=== PATIENT | female | born 1980 | race Caucasian/White ===

== ENCOUNTER → 2017-12-17 | Outpatient (CLI) | payer OTHER | END | disposition home or self-care (01) | LOC: LABWHC1 10:09 | PROVIDERS: ATTEND Obstetrics & Gynecology | DX: N92.6 Irregular menstruation, unspecified (principal) | CPT/HCPCS: 36415; 84702 ==

== ENCOUNTER 2018-10-14 10:23 | Emergency (ER) | payer OTHER ==
[2018-10-14 10:30] VITALS: TEMP 97.8
[2018-10-14] MEDS ORDERED: SODIUM CHLORIDE 0.9% 1,000 ML IV STA (10:54)
[2018-10-14] MEDS ORDERED: KETOROLAC 30 MG/ML 1 ML VIAL IVP STA (11:18)
--- NOTE | 2018-10-14 11:19 | ED ---
Abdominal Pain HPI - General Chief Complaint: Abdominal Pain Stated Complaint: Abd Pain Time Seen by Provider: 10/14/18 10:53 Source: patient, RN notes reviewed Mode of arrival: ambulatory Limitations: no limitations - History of Present Illness Initial Comments: 38-year-old female presents emergency Department with chief complaint of right- sided abdominal pain. Patient states this started Wednesday night has progressively worsened. Patient admits to subjective fevers and chills. She does have some mild diarrhea. Patient states that the pain is worsened and more worrisome. Patient had a prior cholecystectomy. Patient had some nausea no vomiting no melena hematochezia. Patient states that nothing makes the pain better at this time. Denies any chest pain or shortness breath. - Related Data Home Medications Medication Instructions Recorded Confirmed Cholestyramine (with Sugar) 4 gm PO DAILY 10/14/18 10/14/18 [Cholestyramine Packet] Omeprazole 40 mg PO DAILY 10/14/18 10/14/18 Sucralfate [Carafate] 1 gm PO BID 10/14/18 10/14/18 Previous Rx's Medication Instructions Recorded Ciprofloxacin HCl [Cipro] 500 mg PO Q12HR #20 tablet 10/14/18 metroNIDAZOLE [Flagyl] 500 mg PO TID #30 tab 10/14/18 Allergies Allergy/AdvReac Type Severity Reaction Status Date / Time No Known Allergies Allergy Verified 10/14/18 11:01 Review of Systems ROS Statement: Those systems with pertinent positive or pertinent negative responses have been documented in the HPI. ROS Other: All systems not noted in ROS Statement are negative. Past Medical History Past Medical History: No Reported History Additional Past Medical History / Comment(s): varivose vein, gallstones, History of Any Multi-Drug Resistant Organisms: None Reported Past Surgical History: Section Past Anesthesia/Blood Transfusion Reactions: Previous Problems w/ Anesthesia, Motion Sickness Additional Past Anesthesia/Blood Transfusion Reaction / Comment(s): spinal "first one did not take, second only partially took" Past Psychological History: No Psychological Hx Reported Smoking Status: Current every day smoker Past Alcohol Use History: Occasional Past Drug Use History: None Reported - Past Family History Mother Family Medical History: No Reported History General Exam Limitations: no limitations General appearance: alert, in no apparent distress Head exam: Present: atraumatic, normocephalic, normal inspection Neck exam: Present: normal inspection. Absent: tenderness, meningismus, lymphadenopathy Respiratory exam: Present: normal lung sounds bilaterally. Absent: respiratory distress, wheezes, rales, rhonchi, stridor Cardiovascular Exam: Present: regular rate, normal rhythm, normal heart sounds. Absent: systolic murmur, diastolic murmur, rubs, gallop, clicks GI/Abdominal exam: Present: soft, tenderness (Moderate right-sided mid to upper), normal bowel sounds. Absent: distended, guarding, rebound, rigid Back exam: Absent: CVA tenderness (R), CVA tenderness (L) Neurological exam: Present: alert, oriented X3, CN II-XII intact Skin exam: Present: warm, dry, intact, normal color. Absent: rash Course Vital Signs 10/14/18 10:27 Temperature 97.8 F Pulse Rate 89 Respiratory 20 Rate Blood Pressure 133/85 O2 Sat by Pulse 99 Oximetry Medical Decision Making - Medical Decision Making 30-year-old female presented for right-sided abdominal pain. Patient had significant tenderness on exam. Patient lab shows leukocytosis CT shows evidence of diverticulitis without perforation or abscess. Patient will be discharged on oral antibiotics. Patient agrees to plan will follow-up with her surgeon. She is due for colonoscopy at the end of this month. Return parameters were discussed. - Lab Data Result diagrams: 10/14/18 11:15 10/14/18 11:15 Lab Results 10/14/18 10/14/18 10/14/18 Range/Units 11:15 11:15 11:15 WBC 13.8 H (3.8-10.6) k/uL RBC 4.22 (3.80-5.40) m/uL Hgb 13.3 (11.4-16.0) gm/dL Hct 37.8 (34.0-46.0) % MCV 89.7 (80.0-100.0) fL MCH 31.4 (25.0-35.0) pg MCHC 35.0 (31.0-37.0) g/dL RDW 13.7 (11.5-15.5) % Plt Count 317 (150-450) k/uL Neutrophils % 85 % Lymphocytes % 8 % Monocytes % 5 % Eosinophils % 2 % Basophils % 0 % Neutrophils # 11.7 H (1.3-7.7) k/uL Lymphocytes # 1.1 (1.0-4.8) k/uL Monocytes # 0.6 (0-1.0) k/uL Eosinophils # 0.2 (0-0.7) k/uL Basophils # 0.0 (0-0.2) k/uL Sodium 136 L (137-145) mmol/L Potassium 4.0 (3.5-5.1) mmol/L Chloride 105 (98-107) mmol/L Carbon Dioxide 23 (22-30) mmol/L Anion Gap 8 mmol/L BUN 10 (7-17) mg/dL Creatinine 0.80 (0.52-1.04) mg/dL Est GFR (CKD-EPI)AfAm >90 (>60 ml/min/1.73 sqM) Est GFR (CKD-EPI)NonAf >90 (>60 ml/min/1.73 sqM) Glucose 92 (74-99) mg/dL Calcium 9.1 (8.4-10.2) mg/dL Total Bilirubin 2.1 H (0.2-1.3) mg/dL AST 22 (14-36) U/L ALT 31 (9-52) U/L Alkaline Phosphatase 86 (38-126) U/L Total Protein 6.6 (6.3-8.2) g/dL Albumin 3.8 (3.5-5.0) g/dL Lipase 59 (23-300) U/L Urine Color Urine Appearance (Clear) Urine pH (5.0-8.0) Ur Specific [place] (1.001-1.035) Urine Protein (Negative) Urine Glucose (UA) (Negative) Urine Ketones (Negative) Urine Blood (Negative) Urine Nitrite (Negative) Urine Bilirubin (Negative) Urine Urobilinogen (<2.0) mg/dL Ur Leukocyte Esterase (Negative) Urine HCG, Qual Not Detected (Not Detectd) 10/14/18 Range/Units 11:15 WBC (3.8-10.6) k/uL RBC (3.80-5.40) m/uL Hgb (11.4-16.0) gm/dL Hct (34.0-46.0) % MCV (80.0-100.0) fL MCH (25.0-35.0) pg MCHC (31.0-37.0) g/dL RDW (11.5-15.5) % Plt Count (150-450) k/uL Neutrophils % % Lymphocytes % % Monocytes % % Eosinophils % % Basophils % % Neutrophils # (1.3-7.7) k/uL Lymphocytes # (1.0-4.8) k/uL Monocytes # (0-1.0) k/uL Eosinophils # (0-0.7) k/uL Basophils # (0-0.2) k/uL Sodium (137-145) mmol/L Potassium (3.5-5.1) mmol/L Chloride (98-107) mmol/L Carbon Dioxide (22-30) mmol/L Anion Gap mmol/L BUN (7-17) mg/dL Creatinine (0.52-1.04) mg/dL Est GFR (CKD-EPI)AfAm (>60 ml/min/1.73 sqM) Est GFR (CKD-EPI)NonAf (>60 ml/min/1.73 sqM) Glucose (74-99) mg/dL Calcium (8.4-10.2) mg/dL Total Bilirubin (0.2-1.3) mg/dL AST (14-36) U/L ALT (9-52) U/L Alkaline Phosphatase (38-126) U/L Total Protein (6.3-8.2) g/dL Albumin (3.5-5.0) g/dL Lipase (23-300) U/L Urine Color Yellow Urine Appearance Clear (Clear) Urine pH 7.0 (5.0-8.0) Ur Specific [place] 1.017 (1.001-1.035) Urine Protein Negative (Negative) Urine Glucose (UA) Negative (Negative) Urine Ketones Negative (Negative) Urine Blood Negative (Negative) Urine Nitrite Negative (Negative) Urine Bilirubin Negative (Negative) Urine Urobilinogen <2.0 (<2.0) mg/dL Ur Leukocyte Esterase Negative (Negative) Urine HCG, Qual (Not Detectd) Disposition Clinical Impression: Diverticulitis Disposition: HOME SELF-CARE Condition: Stable Instructions (If sedation given, give patient instructions): Diverticulitis (ED) Additional Instructions: Please return to the Emergency Department if symptoms worsen or any other concerns. Prescriptions: Ciprofloxacin HCl [Cipro] 500 mg PO Q12HR #20 tablet metroNIDAZOLE [Flagyl] 500 mg PO TID #30 tab Is patient prescribed a controlled substance at d/c from ED?: No Referrals: Steve Vazquez MD [Primary Care Provider] - 1-2 days Time of Disposition: 12:23
[2018-10-14 11:26] LABS: Appearance,Urine Clear (Clear); Basophils % (A) 0 %; Bilirubin,Urine Negative (Negative); Blood,Urine Negative (Negative); Color,Urine Yellow; Eosinophils # (A) 0.2 k/uL (0-0.7); Eosinophils % (A) 2 %; Glucose,Urine (UA) Negative (Negative); HCT 37.8 % (34.0-46.0); HGB 13.3 gm/dL (11.4-16.0); Ketones,Urine Negative (Negative); Leukocyte Esterase,Urine Negative (Negative); Lymphocytes # (A) 1.1 k/uL (1.0-4.8); Lymphocytes % (A) 8 %; MCH 31.4 pg (25.0-35.0); MCV 89.7 fL (80.0-100.0); Mean Platelet Volume 9.2; Monocytes # (A) 0.6 k/uL (0-1.0); Monocytes % (A) 5 %; Neutrophils # (A) 11.7 k/uL (1.3-7.7); Neutrophils % (A) 85 %; Nitrite,Urine Negative (Negative); Platelet Count 317 k/uL (150-450); Protein,Urine Negative (Negative); RBC 4.22 m/uL (3.80-5.40); RDW 13.7 % (11.5-15.5); Specific Gravity,Urine 1.017 (1.001-1.035); Urobilinogen,Urine <2.0 mg/dL (<2.0); WBC 13.8 k/uL (3.8-10.6)
[2018-10-14 11:37] LABS: ALT 31 U/L (9-52); AST 22 U/L (14-36); Albumin 3.8 g/dL (3.5-5.0); Alkaline Phosphatase 86 U/L (38-126); Anion Gap 8 mmol/L; Blood Urea Nitrogen 10 mg/dL (7-17); Calcium 9.1 mg/dL (8.4-10.2); Carbon Dioxide 23 mmol/L (22-30); Chloride 105 mmol/L (98-107); Glucose 92 mg/dL (74-99); Lipase 59 U/L (23-300); Sodium 136 mmol/L (137-145); Total Bilirubin 2.1 mg/dL (0.2-1.3); Total Protein 6.6 g/dL (6.3-8.2)
--- NOTE | 2018-10-14 12:07 | CT ---
EXAMINATION TYPE: CT abdomen pelvis w con DATE OF EXAM: 10/14/2018 COMPARISON: 12/12/2015 INDICATION: Right sided pain DLP: 657.1 mGycm, Automated exposure control for dose reduction was used. CONTRAST: 100 mL of Isovue 300. Study performed without Oral Contrast TECHNIQUE: Axial images were obtained from above the diaphragm to the pubic rami in the axial plane a t 5 mm thick sections. Reconstructed images are reviewed on the computer in the coronal plane. FINDINGS: Limited CT sections are obtained the lung bases. The lung bases are clear. CT ABDOMEN: Liver: Normal Spleen: Normal Pancreas: Normal Adrenal glands: The adrenal glands are normal. Gallbladder: Surgically absent Kidneys: No masses are evident. No hydronephrosis is present. No cysts are present. Delayed images were obtained through the kidneys. Small cortical renal cysts present on the left. Aorta: Vascular calcification is within the aorta. Inferior vena cava: Normal. CT PELVIS: Small amount of free fluid is within the pelvis. There is bowel wall thickening and inflammatory changes adjacent to the proximal ascending colon. Inf lammatory changes are present. No free air is identified. Findings appear compatible with acute dive rticulitis. Remainder of the colon appears normal. Small bowel loops are unremarkable. Study is perfo rmed without oral contrast. There are scattered diverticuli present within the sigmoid colon without acute diverticulitis. Appendix: Normal as visualized. Appendix is nondilated and air-filled. Urinary bladder: Normal. Genitourinary structures: Uterus is unremarkable. No suspicious ovarian abnormality. Small amount of fluid may be within the right adnexa.. Osseous structures: No suspicious lytic or sclerotic lesions. IMPRESSIONS: 1. Inflammatory changes adjacent to diverticulum with some mild diffuse thickening of the proximal a scending colon wall compatible with acute diverticulitis. Follow-up is recommended. 2. Normal appendix. 3. Small amount of free fluid within the pelvis and right adnexa.
[2018-10-14] MEDS ORDERED: ACET/COD 300 MG/30 MG STARTER PACK 6 TAB BTL PO STA (12:23)
[2018-10-14 12:51] VITALS: BP 108/64; PULSE 73; RESP 18
== END 2018-10-14 12:51 | disposition home or self-care (01) ==
LOC: EC 10:23
DX: K57.92 Diverticulitis of intestine, part unspecified, without perforation or abscess without bleeding (principal); F17.200 Nicotine dependence, unspecified, uncomplicated; Z79.899 Other long term (current) drug therapy
CPT/HCPCS: 36415; 80053; 83690; 85025; 81003; 81025; 74177; 99284; 96374; 96361; J1885; Q9967

== ENCOUNTER → 2019-06-12 | Outpatient (CLI) | payer OTHER ==
--- NOTE | 2019-06-12 14:36 | CT ---
EXAMINATION TYPE: CT abdomen pelvis wo/w con DATE OF EXAM: 06/12/2019 HISTORY: RUQ pain CT DLP: 806.2mGycm Automated Exposure Control for Dose Reduction was Utilized. CONTRAST: CT scan of the abdomen and pelvis is performed with IV Contrast, patient injected with 80 mL of Isovu e 300. COMPARISON: CT dated 10/14/2018 FINDINGS: LUNG BASES: No significant abnormality is appreciated. LIVER/GB: Hepatic parenchyma is diffusely hypoattenuated in comparison to that of the spleen, most co mmonly seen in hepatic steatosis. This finding limits evaluation for hepatic masses. No gross evidenc e of hepatic mass is seen. No intrahepatic biliary ductal dilatation. Gallbladder is surgically absen t. PANCREAS: No significant abnormality is seen. SPLEEN: No significant abnormality is seen. ADRENALS: No significant abnormality is seen. KIDNEYS: Unenhanced images demonstrate no evidence of nephrolithiasis. Enhanced images demonstrate 2 small to accurately characterize cortical lesions on the left. No hydronephrosis is seen. BOWEL: There are few colonic diverticula without pericolonic fat stranding UTERUS/ADNEXA: Ocular and/or cystic changes are seen of the ovaries. Endometrium appears within moreno l limits for a premenopausal female. LYMPH NODES: No greater than 1cm abdominal or pelvic lymph nodes are appreciated. OSSEOUS STRUCTURES: No significant abnormality is seen. IMPRESSION: 1. Mild degree hepatic steatosis. 2. Follicular and/or cystic changes of the ovaries. If there is further concern or pelvic pain pelvic ultrasound could be performed.
== END | disposition home or self-care (01) ==
LOC: RADCTMAIN 11:38
PROVIDERS: ATTEND Internal Medicine
DX: K76.0 Fatty (change of) liver, not elsewhere classified (principal)
CPT/HCPCS: 74178; Q9967

== ENCOUNTER 2019-07-19 08:40 | Day surgery (SDC) | payer OTHER ==
[2019-07-14 10:37] VITALS: BMI 24.7
[~2019-07-19 08:40] MED LIST: LACTATED RINGERS 1,000 ML IV SCH; LIDOCAINE 1% 20 ML VIAL (10MG/ML) FOR IV START INTRADERMA PRN
[2019-07-19 09:12] VITALS: TEMP 97.3
[2019-07-19] MEDS ORDERED: PROPOFOL 10 MG/ML 20 ML VIAL IV ONE (09:52)
[2019-07-19] MEDS ORDERED: LIDOCAINE 1% INJ 10MG/ML (20 ML MDV) ONE (09:52)
--- NOTE | 2019-07-19 10:08 | P.PCN ---
Date of Procedure: 07/19/19 Procedure(s) Performed: BRIEF HISTORY: Patient is a 38-year-old pleasant female scheduled for an elective colonoscopy as a part of evaluation of prior history of colon polyps. Last colonoscopy was 5 years ago. PROCEDURE PERFORMED: Colonoscopy. PREOPERATIVE DIAGNOSIS: History of colon polyps. IV sedation per Anesthesia. PROCEDURE: After informed consent was obtained, the patient, was brought into the endoscopy unit. IV sedation was administered by Anesthesia under continuous monitoring. Digital rectal examination was normal. Initially the Olympus CF-160 flexible video colonoscope was then inserted in the rectum, gradually advanced into the cecum without any difficulty. Careful examination was performed as the scope was gradually being withdrawn. Ileocecal valve and the appendiceal orifice were visualized and appeared normal. Prep was excellent. Mucosa of the cecum, ascending colon, transverse colon, descending colon, sigmoid colon, and rectum appeared normal. Scattered sigmoid diverticulosis. Retroflexion was performed in the rectum and no lesions were seen. The patient tolerated the procedure well. IMPRESSION: Normal-appearing colon from rectum to cecum with no evidence of colorectal neoplasia . Scattered sigmoid diverticulosis RECOMMENDATIONS: Findings of this examination were discussed with the patient as well as a family. She was advised to have a repeat surveillance colonoscopy in 5 years from now because of the prior history of colon polyps.
[2019-07-19 10:27] VITALS: BP 119/75; RESP 16
[2019-07-19 10:39] VITALS: PULSE 62
== END 2019-07-19 11:00 | disposition home or self-care (01) ==
LOC: ORWHC2ENDO 08:40
PROVIDERS: ATTEND Internal Medicine Gastroenterology
DX: K57.30 Diverticulosis of large intestine without perforation or abscess without bleeding (principal); Z86.010 Personal history of colon polyps; R19.7 Diarrhea, unspecified; K21.9 Gastro-esophageal reflux disease without esophagitis; L30.9 Dermatitis, unspecified; F17.210 Nicotine dependence, cigarettes, uncomplicated; Z91.012 Allergy to eggs; Z91.011 Allergy to milk products; Z79.899 Other long term (current) drug therapy; Z98.890 Other specified postprocedural states; Z87.898 Personal history of other specified conditions
CPT/HCPCS: 81025; 45378; J2001; J2704

== ENCOUNTER 2023-07-26 11:45 | Observation (INO) | payer BC ==
[2023-07-26] MEDS ORDERED: SODIUM CHLORIDE 0.9% 1,000 ML IV STA (12:12)
[2023-07-26] MEDS ORDERED: KETOROLAC 15 MG/ML 1 ML VIAL IVP STA (12:12)
[2023-07-26] MEDS ORDERED: MORPHINE SULFATE 2 MG/ML SYRINGE IVP STA (12:13)
--- NOTE | 2023-07-26 12:18 | ED ---
Abdominal Pain HPI - General Chief Complaint: Abdominal Pain Stated Complaint: RLQ and back pain Time Seen by Provider: 07/26/23 12:04 Source: patient, RN notes reviewed Mode of arrival: ambulatory Limitations: no limitations - History of Present Illness Initial Comments: This is a 42 year old female who presents to the emergency department for abdominal pain. States that yesterday she developed pain in the RLQ with radiation into the back. Also has some pain in the left lower quadrant, but not to the severity of the right side. She had a fever of 103F last night. She took ibuprofen for the fever, however it did not help the pain. Also reports diarrhea. She denies any nausea or vomiting. She has a history of diverticulitis a few years ago, and is unsure if it is related to that or something else such as her appendix. MD Complaint: abdominal pain - Related Data Home Medications Medication Instructions Recorded Confirmed Omeprazole 20 mg PO DAILY PRN 07/26/23 07/26/23 Allergies Allergy/AdvReac Type Severity Reaction Status Date / Time egg Allergy Bloating Verified 07/26/23 13:51 Milk Containing Products Allergy Bloating Verified 07/26/23 13:51 (Dairy) [Dairy] Review of Systems ROS Statement: Those systems with pertinent positive or pertinent negative responses have been documented in the HPI. ROS Other: All systems not noted in ROS Statement are negative. Past Medical History Past Medical History: GERD/Reflux, Skin Disorder Additional Past Medical History / Comment(s): Varicose vein, IBS, chronic diarrhea, Dermatitis. History of Any Multi-Drug Resistant Organisms: None Reported Past Surgical History: Section, Cholecystectomy Additional Past Surgical History / Comment(s): Section X3. COLONOSCOPY Past Anesthesia/Blood Transfusion Reactions: Previous Problems w/ Anesthesia, Motion Sickness Additional Past Anesthesia/Blood Transfusion Reaction / Comment(s): Spinal "first one did not take, second only partially took." Past Psychological History: No Psychological Hx Reported Smoking Status: Current every day smoker Past Alcohol Use History: Occasional Past Drug Use History: None Reported - Past Family History Mother Family Medical History: No Reported History General Exam Limitations: no limitations General appearance: alert, in no apparent distress Head exam: Present: atraumatic, normocephalic, normal inspection Respiratory exam: Present: normal lung sounds bilaterally. Absent: respiratory distress, wheezes, rales, rhonchi, stridor Cardiovascular Exam: Present: regular rate, normal rhythm, normal heart sounds. Absent: systolic murmur, diastolic murmur, rubs, gallop, clicks GI/Abdominal exam: Present: soft, tenderness (RLQ), normal bowel sounds. Absent: distended Neurological exam: Present: alert, oriented X3, CN II-XII intact Psychiatric exam: Present: normal affect, normal mood Skin exam: Present: warm, dry, intact, normal color. Absent: rash Course Vital Signs 07/26/23 07/26/23 07/26/23 11:48 13:52 15:33 Temperature 98.4 F 97.8 F Pulse Rate 104 H 72 86 Respiratory 20 18 18 Rate Blood Pressure 121/74 111/70 107/71 O2 Sat by Pulse 99 97 Oximetry Medical Decision Making - Medical Decision Making This is a 42-year-old female who presents to the emergency department for abdominal pain. Was pt. sent in by a medical professional or institution? @ -No Did you speak to anyone other than the patient for history? @ -No Did you review nursing and triage notes? @ -Yes, and I agree, it is accurate with regards to the patient's symptoms. Were old charts reviewed? @ -No Differential Diagnosis? @ -Differential Abdominal Pain Women: Appendicitis, Cholecystitis, diverticulosis, ischemic bowel, pancreatitis, hepatitis, UTI, gastroenteritis, AAA, incarcerated hernia, bowel obstruction, constipation, inflammatory bowel, hepatitis, peptic ulcer disease, splenic infarction, perforated viscus, vulvitis, ovarian torsion, PID, kidney stone, placenta abruption, this is not meant to be an all-inclusive list EKG interpreted by me (3pts min.)? @ -Not obtained X-rays interpreted by me (1pt min.)? @ -Not obtained CT interpreted by me (1pt min.)? @ -CT scan of the abdomen and pelvis obtained. My interpretation identifies no dilation of the appendix or free air. U/S interpreted by me (1pt. min.)? @ -Not obtained What testing was considered but not performed? (CT, X-rays, U/S, labs)? Why? @ -None What meds were considered but not given? Why? @ -None Did you discuss the management of the patient with other professionals? @ -Yes, Dr. Clark, who accepts the patient for admission. Did you reconcile home meds? @ -No Was smoking cessation discussed for >3mins.? @ -I discussed smoking cessation for greater than 3 minutes. The risk of smoking were discussed with the patient including but not limited to risks of cancer, stroke, coronary artery disease and COPD. Also discussed with patient were multiple methods of quitting smoking. Lastly we discussed the financial cost of smoking. Was critical care preformed (if so, how long)? @ -No Were there social determinants of health that impacted care today? How? (Homelessness, low income, unemployed, alcoholism, drug addiction, transportation, low edu. Level, literacy, decrease access to med. care, custodial, rehab)? @ -No Was there de-escalation of care discussed even if they declined? (Discuss DNR or withdrawal of care, Hospice)? @ -No What co-morbidities impacted this encounter? (DM, HTN, Smoking, COPD, CAD, Cancer, CVA, Hep., AIDS, mental health diagnosis, sleep apnea, morbid obesity)? @ -None Was patient admitted / discharged? @ -Admitted. Lab work obtained revealing leukocytosis and was otherwise unre markable. Computed tomography scan of the abdomen and pelvis reveals severe inflammatory changes to the right upper quadrant thought to be related to diverticulitis. The appendix was visualized as normal. Patient continued to exhibit intractable pain despite multiple doses of IV analgesics. Given the patient's intractable pain with the severity of the inflammation, she was admitted to medicine for further management. Patient started on IV Zosyn and blood cultures were obtained. Undiagnosed new problem with uncertain prognosis? @ -None Drug Therapy requiring intensive monitoring for toxicity (Heparin, Nitro, Insulin, Cardizem)? @ -None Were any procedures done? @ -None Diagnosis/symptom? @ -Diverticulitis, intractable pain Acute, or Chronic, or Acute on Chronic? @ -Acute Uncomplicated (without systemic symptoms) or Complicated (systemic symptoms)? @ -Complicated Side effects of treatment? @ -None Exacerbation, Progression, or Severe Exacerbation] @ -Not applicable Poses a threat to life or bodily function? @ -Yes This case was discussed in detail with the attending ED physician, Dr. Black. Presentation, findings, and treatment plan discussed in detail as well. - Lab Data Result diagrams: 07/26/23 12:27 07/26/23 12:27 Lab Results 07/26/23 07/26/2324 Range/Units 12:27 12:27 12:27 WBC 16.7 H (3.8-10.6) k/uL RBC 4.04 (3.80-5.40) m/uL Hgb 13.6 (11.4-16.0) gm/dL Hct 40.1 (34.0-46.0) % MCV 99.2 (80.0-100.0) fL MCH 33.6 (25.0-35.0) pg MCHC 33.9 (31.0-37.0) g/dL RDW 15.0 (11.5-15.5) % Plt Count 306 (150-450) k/uL MPV 9.2 Neutrophils % 90 % Lymphocytes % 5 % Monocytes % 4 % Eosinophils % 1 % Basophils % 0 % Neutrophils # 14.9 H (1.3-7.7) k/uL Lymphocytes # 0.9 L (1.0-4.8) k/uL Monocytes # 0.6 (0-1.0) k/uL Eosinophils # 0.1 (0-0.7) k/uL Basophils # 0.0 (0-0.2) k/uL Macrocytosis Slight Sodium 135 L (137-145) mmol/L Potassium 4.1 (3.5-5.1) mmol/L Chloride 104 (98-107) mmol/L Carbon Dioxide 24 (22-30) mmol/L Anion Gap 7 mmol/L BUN 10 (7-17) mg/dL Creatinine 0.75 (0.52-1.04) mg/dL Est GFR (CKD-EPI)AfAm >90 (>60 ml/min/1.73 sqM) Est GFR (CKD-EPI)NonAf >90 (>60 ml/min/1.73 sqM) Glucose 102 H (74-99) mg/dL Plasma Lactic Acid [place] 1.1 (0.7-2.0) mmol/L Calcium 9.0 (8.4-10.2) mg/dL Total Bilirubin 2.8 H (0.2-1.3) mg/dL AST 19 (14-36) U/L ALT 15 (4-34) U/L Alkaline Phosphatase 89 (38-126) U/L Total Protein 6.4 (6.3-8.2) g/dL Albumin 3.6 (3.5-5.0) g/dL Amylase 41 (30-110) U/L Lipase 37 (23-300) U/L HCG, Qual Not Detected Urine Color Urine Appearance (Clear) Urine pH (5.0-8.0) Ur Specific [place] (1.001-1.035) Urine Protein (Negative) Urine Glucose (UA) (Negative) Urine Ketones (Negative) Urine Blood (Negative) Urine Nitrite (Negative) Urine Bilirubin (Negative) Urine Urobilinogen (<2.0) mg/dL Ur Leukocyte Esterase (Negative) Urine RBC (0-5) /hpf Urine WBC (0-5) /hpf Ur Squamous Epith Cells (0-4) /hpf Urine Mucus (None) /hpf 07/26/23 Range/Units 14:12 WBC (3.8-10.6) k/uL RBC (3.80-5.40) m/uL Hgb (11.4-16.0) gm/dL Hct (34.0-46.0) % MCV (80.0-100.0) fL MCH (25.0-35.0) pg MCHC (31.0-37.0) g/dL RDW (11.5-15.5) % Plt Count (150-450) k/uL MPV Neutrophils % % Lymphocytes % % Monocytes % % Eosinophils % % Basophils % % Neutrophils # (1.3-7.7) k/uL Lymphocytes # (1.0-4.8) k/uL Monocytes # (0-1.0) k/uL Eosinophils # (0-0.7) k/uL Basophils # (0-0.2) k/uL Macrocytosis Sodium (137-145) mmol/L Potassium (3.5-5.1) mmol/L Chloride (98-107) mmol/L Carbon Dioxide (22-30) mmol/L Anion Gap mmol/L BUN (7-17) mg/dL Creatinine (0.52-1.04) mg/dL Est GFR (CKD-EPI)AfAm (>60 ml/min/1.73 sqM) Est GFR (CKD-EPI)NonAf (>60 ml/min/1.73 sqM) Glucose (74-99) mg/dL Plasma Lactic Acid [place] (0.7-2.0) mmol/L Calcium (8.4-10.2) mg/dL Total Bilirubin (0.2-1.3) mg/dL AST (14-36) U/L ALT (4-34) U/L Alkaline Phosphatase (38-126) U/L Total Protein (6.3-8.2) g/dL Albumin (3.5-5.0) g/dL Amylase (30-110) U/L Lipase (23-300) U/L HCG, Qual Urine Color Yellow Urine Appearance Clear (Clear) Urine pH 6.0 (5.0-8.0) Ur Specific [place] >1.050 H (1.001-1.035) Urine Protein Trace H (Negative) Urine Glucose (UA) Negative (Negative) Urine Ketones Trace H (Negative) Urine Blood Negative (Negative) Urine Nitrite Negative (Negative) Urine Bilirubin Negative (Negative) Urine Urobilinogen <2.0 (<2.0) mg/dL Ur Leukocyte Esterase Trace H (Negative) Urine RBC 4 (0-5) /hpf Urine WBC 7 H (0-5) /hpf Ur Squamous Epith Cells 16 H (0-4) /hpf Urine Mucus Rare H (None) /hpf - Radiology Data Radiology results: report reviewed, image reviewed Disposition Clinical Impression: Diverticulitis, Intractable pain, Nicotine dependence Disposition: ADMITTED IP TO THIS [facility] Time of Disposition: 13:00
[2023-07-26 13:11] LABS: Basophils % (A) 0 %; Eosinophils # (A) 0.1 k/uL (0-0.7); Eosinophils % (A) 1 %; HCT 40.1 % (34.0-46.0); HGB 13.6 gm/dL (11.4-16.0); Lymphocytes # (A) 0.9 k/uL (1.0-4.8); Lymphocytes % (A) 5 %; MCH 33.6 pg (25.0-35.0); MCHC 33.9 g/dL (31.0-37.0); MCV 99.2 fL (80.0-100.0); Macrocytosis Slight; Mean Platelet Volume 9.2; Monocytes # (A) 0.6 k/uL (0-1.0); Monocytes % (A) 4 %; Neutrophils # (A) 14.9 k/uL (1.3-7.7); Neutrophils % (A) 90 %; Platelet Count 306 k/uL (150-450); RBC 4.04 m/uL (3.80-5.40); WBC 16.7 k/uL (3.8-10.6)
[2023-07-26 13:13] LABS: ALT 15 U/L (4-34); AST 19 U/L (14-36); African American GFR (CKD) >90 (>60 ml/min/1.73 sqM); Albumin 3.6 g/dL (3.5-5.0); Alkaline Phosphatase 89 U/L (38-126); Amylase 41 U/L (30-110); Anion Gap 7 mmol/L; Blood Urea Nitrogen 10 mg/dL (7-17); Carbon Dioxide 24 mmol/L (22-30); Chloride 104 mmol/L (98-107); Glucose 102 mg/dL (74-99); Lipase 37 U/L (23-300); Non-African American GFR(CKD) >90 (>60 ml/min/1.73 sqM); Potassium 4.1 mmol/L (3.5-5.1); Sodium 135 mmol/L (137-145); Total Bilirubin 2.8 mg/dL (0.2-1.3); Total Protein 6.4 g/dL (6.3-8.2)
--- NOTE | 2023-07-26 13:40 | CT ---
EXAMINATION TYPE: CT abdomen pelvis w con DATE OF EXAM: 07/26/2023 COMPARISON: 06/12/2019 HISTORY: RLQ pain CT DLP: 717.7 mGycm Automated exposure control for dose reduction was used. CONTRAST: CT scan of the abdomen pelvis is performed with IV Contrast, patient injected with 100 ml mL of Isovu e 300. FINDINGS- LUNG BASES- bibasilar atelectasis. LIVER/GB- postcholecystectomy changes. There is mild intrahepatic biliary ductal dilation likely re lated to the cholecystectomy changes. PANCREAS- No gross abnormality is seen. SPLEEN- No gross abnormality is seen. ADRENALS- No gross abnormality is seen. KIDNEYS/BLADDER- no hydronephrosis \nephrolithiasis. Subcentimeter hypodensities left kidney are inde terminate and too small to characterize.. BOWEL- there is severe inflammatory change in the right upper quadrant most likely etiology is the d escending colon where there is a large diverticulum. Would favor acute diverticulitis over colitis. R ecommend correlation clinically and follow-up to resolution. Appendix is normal. No abscess. No free air. LYMPH NODES- No greater than 1cm abdominal or pelvic lymph nodes are appreciated. OSSEOUS STRUCTURES- No significant abnormality is seen. OTHER- small fat-containing periumbilical hernia. There is a trace amount of fluid in the pelvis. Pr ominence of bilateral adnexal region could be evaluated with ultrasound. IMPRESSION- 1. Severe inflammatory changes right upper quadrant favor acute diverticulitis over colitis. Follow-u p to resolution to exclude underlying mucosal lesion. 2. Normal appendix.
[2023-07-26] MEDS ORDERED: HYDROmorphone 1 MG/ML 1 ML SYRINGE IVP STA ×2 (13:46→15:13)
[2023-07-26 14:26] LABS: HCG,Qualitative Serum Not Detected
[2023-07-26 14:38] LABS: Appearance,Urine Clear (Clear); Bilirubin,Urine Negative (Negative); Blood,Urine Negative (Negative); Color,Urine Yellow; Glucose,Urine (UA) Negative (Negative); Ketones,Urine Trace (Negative); Leukocyte Esterase,Urine Trace (Negative); Mucus,Urine Rare /hpf; Nitrite,Urine Negative (Negative); Protein,Urine Trace (Negative); RBC,Urine 4 /hpf (0-5); Squamous Epithelial Cell,Urine 16 /hpf (0-4); Urobilinogen,Urine <2.0 mg/dL (<2.0); WBC,Urine 7 /hpf (0-5)
[2023-07-26 14:39] LABS: Specific Gravity,Urine >1.050 (1.001-1.035)
[2023-07-26] MEDS ORDERED: ACETAMINOPHEN TAB 325 MG TAB PO PRN (15:18)
[2023-07-26] MEDS ORDERED: KETOROLAC 15 MG/ML 1 ML VIAL IVP PRN (15:18)
[2023-07-26] MEDS ORDERED: HYDROmorphone 0.5 MG/0.5 ML SYRINGE IVP PRN (15:18)
[2023-07-26] MEDS ORDERED: ONDANSETRON 4 MG/2 ML VIAL IVP PRN (15:18)
[2023-07-26] MEDS ORDERED: NALOXONE 0.4 MG/ML 1 ML VIAL IV PRN (15:18)
[2023-07-26] MEDS: SODIUM CHLORIDE 0.9% 1,000 ML IV SCH (15:37)
[2023-07-26] MEDS ORDERED: PIPERACILLIN-TAZOBACTAM 3.375 GM in SODIUM CHLORIDE 0.9% 100 ML IVPB SCH (16:00)
--- NOTE | 2023-07-26 16:44 | P.HPIM ---
History of Present Illness H&P Date: 07/26/23 Patient is a 42-year-old female with history of recurrent diverticulitis presenting with abdominal pain. She claims that it started yesterday night in the right upper quadrant, 10/10, sharp and deep, nonradiating. She has had similar symptoms in the past as well. She has had 2 colonoscopies in the past and adenomas were resected at one point. Last colonoscopy was 3 years ago, did not show any polyps. She does not remember being told anything about right- sided diverticulosis. She denies any unintentional weight loss. She did have fever last night, and chills. She denies any sick contacts. She is status post cholecystectomy. In the ED, temperature was 98.4, pulse 104, respiratory 20, blood pressure 121/74, saturating at 99% on room air. WBC 16.7, hemoglobin 13.6, sodium 135, creatinine 0.75, lactate 1.1, total bili 2.8. Abdomen and pelvis CT showed severe inflammatory changes in the right upper quadrant in favor of acute diverticulitis or colitis. She was given IV fluids in the ED, started on IV Zosyn, pain control with IV narcotics. Patient being admitted for sepsis secondary to acute diverticulitis. Pertinent positives and negatives as discussed in HPI, a complete review of systems was performed and all other systems are negative. Patient seen and examined at bedside. Vital signs reviewed General: nontoxic, no distress, appears at stated age Derm: warm, dry Head: atraumatic, normocephalic, symmetric Eyes: EOMI, no lid lag, anicteric sclera, pupils equal round reactive to light ENT: Nose and ears atraumatic Neck: No thyromegaly, supple Mouth: no lip lesion, mucus membranes moist Cardiovascular: S1S2 reg, no murmur, no edema Lungs: clear to auscultation bilateral, no rhonchi, no rales, no wheeze, no accessory muscle use Abdominal: soft, tender to palpation in the right upper quadrant, no guarding, no appreciable organomegaly Ext: no gross muscle atrophy, muscle strength muscle strength 5 out of 5 in all 4 extremities, no contractures Neuro: CN II-XII grossly intact Psych: Alert, oriented, appropriate affect Assessment/Plan: Active: Sepsis secondary to acute diverticulitis Leukocytosis Hyperbilirubinemia -Blood cultures pending, lactate within normal limits -De-escalate antibiotics to IV ceftriaxone 2 g every 24 hours and IV Flagyl 500 3 times a day -Pain control with oral Tylenol as needed, IV Dilaudid as needed, IV Toradol as needed -IV fluids increased to 130 mL an hour -Repeat CBC and CMP tomorrow The patient is admitted with an anticipated less than 2 midnight stay as obs ervation status for evaluation of acute diverticulitis and sepsis. Surrogate decision-maker: CODE STATUS: Full code DVT prophylaxis: Lovenox Anticipated discharge date: 1-[address]: Home A total of 66 minutes was spent on the care of this complex patient more than 5 0% of the time was spent in counseling and care coordination. Past Medical History Past Medical History: GERD/Reflux, Skin Disorder Additional Past Medical History / Comment(s): Varicose vein, IBS, chronic diarrhea, Dermatitis. History of Any Multi-Drug Resistant Organisms: None Reported Past Surgical History: Section, Cholecystectomy Additional Past Surgical History / Comment(s): Section X3. COLONOSCOPY Past Anesthesia/Blood Transfusion Reactions: Previous Problems w/ Anesthesia, Motion Sickness Additional Past Anesthesia/Blood Transfusion Reaction / Comment(s): Spinal "fi rst one did not take, second only partially took." Past Psychological History: No Psychological Hx Reported Smoking Status: Current every day smoker Past Alcohol Use History: Occasional Past Drug Use History: None Reported - Past Family History Mother Family Medical History: No Reported History Medications and Allergies Home Medications Medication Instructions Recorded Confirmed Type Omeprazole 20 mg PO DAILY PRN 07/26/23 07/26/23 History Allergies Allergy/AdvReac Type Severity Reaction Status Date / Time egg Allergy Bloating Verified 07/26/23 13:51 Milk Containing Products Allergy Bloating Verified 07/26/23 13:51 (Dairy) [Dairy] Physical Exam Vitals: Vital Signs Temp Pulse Resp BP Pulse Ox 07/26/23 15:33 86 18 107/71 97 07/26/23 13:52 97.8 F 72 18 111/70 07/26/23 11:48 98.4 F 104 H 20 121/74 99 Intake and Output 07/26/23 07/26/23 07/26/23 06:59 14:59 22:59 Other: Weight 66.224 kg Results CBC & Chem 7: 07/26/23 12:27 07/26/23 12:27 Labs: Abnormal Lab Results - Last 24 Hours (Table) 07/26/23 07/26/23 07/26/23 Range/Units 12:27 12:27 14:12 WBC 16.7 H (3.8-10.6) k/uL Neutrophils # 14.9 H (1.3-7.7) k/uL Lymphocytes # 0.9 L (1.0-4.8) k/uL Sodium 135 L (137-145) mmol/L Glucose 102 H (74-99) mg/dL Total Bilirubin 2.8 H (0.2-1.3) mg/dL Ur Specific [place] >1.050 H (1.001-1.035) Urine Protein Trace H (Negative) Urine Ketones Trace H (Negative) Ur Leukocyte Esterase Trace H (Negative) Urine WBC 7 H (0-5) /hpf Ur Squamous Epith Cells 16 H (0-4) /hpf Urine Mucus Rare H (None) /hpf
[2023-07-26] MEDS: metroNIDAZOLE-NS PMX 500 MG in SALINE 1 100ML.BAG IVPB SCH (21:57)
[2023-07-26] MEDS: HYDROmorphone 1 MG/ML 1 ML SYRINGE IVP PRN (22:15)
[2023-07-27] MEDS: metroNIDAZOLE-NS PMX 500 MG in SALINE 1 100ML.BAG IVPB SCH ×2 (01:19→08:53)
[2023-07-27] MEDS: HYDROmorphone 1 MG/ML 1 ML SYRINGE IVP PRN ×3 (01:19→09:21)
[2023-07-27] MEDS: SODIUM CHLORIDE 0.9% 1,000 ML IV SCH ×2 (01:30→06:18)
[2023-07-27 07:56] LABS: Basophils % (A) 0 %; Eosinophils # (A) 0.1 k/uL (0-0.7); Eosinophils % (A) 1 %; HGB 11.8 gm/dL (11.4-16.0); Lymphocytes # (A) 0.9 k/uL (1.0-4.8); Lymphocytes % (A) 7 %; MCH 33.9 pg (25.0-35.0); MCHC 33.6 g/dL (31.0-37.0); MCV 100.8 fL (80.0-100.0); Macrocytosis Slight; Mean Platelet Volume 9.7; Monocytes # (A) 0.6 k/uL (0-1.0); Monocytes % (A) 5 %; Neutrophils % (A) 86 %; Platelet Count 252 k/uL (150-450); RBC 3.48 m/uL (3.80-5.40); RDW 15.2 % (11.5-15.5); WBC 12.7 k/uL (3.8-10.6)
[2023-07-27 08:14] LABS: African American GFR (CKD) >90 (>60 ml/min/1.73 sqM); Anion Gap 6 mmol/L; Blood Urea Nitrogen 6 mg/dL (7-17); Calcium 8.2 mg/dL (8.4-10.2); Carbon Dioxide 23 mmol/L (22-30); Chloride 103 mmol/L (98-107); Glucose 85 mg/dL (74-99); Non-African American GFR(CKD) >90 (>60 ml/min/1.73 sqM); Potassium 3.6 mmol/L (3.5-5.1); Sodium 132 mmol/L (137-145)
[2023-07-27] MEDS ORDERED: ENOXAPARIN 40 MG/0.4 ML SYRINGE SQ SCH (09:00)
[2023-07-27 11:03] VITALS: BP 124/82; PULSE 108; RESP 16; TEMP 99.3
--- NOTE | 2023-07-27 11:18 | P.DS ---
Providers Date of admission: 07/26/23 15:26 Expected date of discharge: 07/27/23 Attending physician: Harry Clark MD Primary care physician: Govind Camarena [facility] Course: Discharge Diagnosis: Sepsis secondary to acute diverticulitis Leukocytosis Hyperbilirubinemia Nicotine dependence Alcohol dependence Hospital Course: 42-year-old female with history of recurrent diverticulitis presenting with abdominal pain. In the ED, temperature was 98.4, pulse 104, respiratory 20, blood pressure 121/74, saturating at 99% on room air. WBC 16.7, hemoglobin 13.6, sodium 135, creatinine 0.75, lactate 1.1, total bili 2.8. Abdomen and pelvis CT showed severe inflammatory changes in the right upper quadrant in favor of acute diverticulitis or colitis. She was given IV fluids in the ED, started on IV Zosyn, pain control with IV narcotics. Patient being admitted for sepsis secondary to acute diverticulitis. White count improved. Symptoms are resolving. Patient unable to tolerate oral intake. She will be discharged with oral antibiotics. Follow-up with PCP and GI for repeat colonoscopy. Patient seen and examined at bedside. Vital signs reviewed and stable. General: nontoxic, no distress, appears at stated age Derm: warm, dry Head: atraumatic, normocephalic, symmetric Eyes: EOMI, no lid lag, anicteric sclera Mouth: no lip lesion, mucus membranes moist Cardiovascular: S1S2 reg, no murmur Lungs: CTA bilateral, no rhonchi, no rales , no accessory muscle use Abdominal: soft, nontender to palpation, no guarding, no appreciable organomegaly Ext: no gross muscle atrophy, no edema, no contractures Neuro: CN II-XI grossly intact, no focal neuro deficits Psych: Alert, oriented, appropriate affect A total of 33 minutes of time were spent preparing this complex discharge summary. Patient was discharged on 07/27/23 at 1041. Patient Condition at Discharge: Stable Plan - Discharge Summary Discharge Rx Participant: No New Discharge Prescriptions: New Cefdinir 300 mg PO Q12HR #20 cap metroNIDAZOLE [Flagyl] 500 mg PO TID #30 tab Continue Omeprazole 20 mg PO DAILY PRN PRN Reason: Gi Upset Discharge Medication List Omeprazole 20 mg PO DAILY PRN 07/26/23 [History] Cefdinir 300 mg PO Q12HR #20 cap 07/27/23 [Rx] metroNIDAZOLE [Flagyl] 500 mg PO TID #30 tab 07/27/23 [Rx] Follow up Appointment(s)/Referral(s): Govind Camarena MD [Primary Care Provider] - 1-2 days Julissa Lorenz MD [STAFF PHYSICIAN] - 4 Weeks Patient Instructions/Handouts: Diverticulitis (DC) Activity/Diet/Wound Care/Special Instructions: Please see your PCP and GI. You will need colonoscopy outpatient. Discharge Disposition: HOME SELF-CARE
== END 2023-07-27 11:43 | disposition home or self-care (01) ==
LOC: EC 11:45 → 5NMEDONC 15:26 → 1SOBS 18:59
PROVIDERS: ADMIT Student in an Organized Health Care Education/Training Program; ATTEND Student in an Organized Health Care Education/Training Program
DX: A41.9 Sepsis, unspecified organism (principal); K57.33 Diverticulitis of large intestine without perforation or abscess with bleeding; M54.9 Dorsalgia, unspecified; Z91.012 Allergy to eggs; Z91.011 Allergy to milk products; R17 Unspecified jaundice; K58.0 Irritable bowel syndrome with diarrhea; K21.9 Gastro-esophageal reflux disease without esophagitis; L30.9 Dermatitis, unspecified; I83.90 Asymptomatic varicose veins of unspecified lower extremity; F17.200 Nicotine dependence, unspecified, uncomplicated; Z71.6 Tobacco abuse counseling; F10.20 Alcohol dependence, uncomplicated; Z79.899 Other long term (current) drug therapy; Z90.49 Acquired absence of other specified parts of digestive tract; Z98.891 History of uterine scar from previous surgery
CPT/HCPCS: 96366 ×3; 96367 ×2; 96372; 96375 ×2; 96376 ×3; 96361; 96365; 99285; 36415; 80053; 80048; 82150; 83605; 83690; 85025 ×2; 81001; 84703; 87040; 74177; G0378 ×3; J2543; J2405; J0696; J1650; J2270; J1170 ×2; J1885; Q9967; J1836 ×2

== ENCOUNTER → 2023-09-23 | Outpatient (CLI) | payer BC ==
--- NOTE | 2023-09-27 00:07 | MM ---
Reason for Exam: Screening (asymptomatic). Last mammogram was performed 1 year(s) and 1 month(s) ago. Patient History: Menarche at age 12. First Full-Term at age 21. Premenopausal. Risk Values: Susana 5 year model risk: 0.6%. NCI Lifetime model risk: 8.9%. Prior Study Comparison: 08/18/2022 Bilateral MG 3D screening mammo w/cad, [facility]. Tissue Density: There are scattered areas of fibroglandular density. Findings: Analyzed By CAD. There is no suspicious group of microcalcifications or new suspicious mass in either breast. Overall Assessment: Negative, BI-RAD 1 Management: Screening Mammogram of both breasts in 1 year. . Patient should continue monthly self-breast exams. A clinical breast exam by your physician is recommended on an annual basis. This exam should not preclude additional follow-up of suspicious palpable abnormalities. Note on Susana scores and lifetime risk: 1. A Susana score greater than 3% is considered moderate risk. If this is the case, consider specialist referral to assess eligibility for a risk reducing agent. 2. If overall lifetime risk for the development of breast cancer is 20% or higher, the patient may qualify for future screening with alternating mammogram and breast MRI. Electronically signed and approved by: Jessica Vallejo M.D. Radiologist
== END | disposition home or self-care (01) ==
LOC: RADMAMWWP 12:13
PROVIDERS: ATTEND Obstetrics & Gynecology
DX: Z12.31 Encounter for screening mammogram for malignant neoplasm of breast (principal)
CPT/HCPCS: 77063; 77067

== ENCOUNTER → 2024-07-26 | Outpatient (CLI) | payer BC ==
--- NOTE | 2024-07-26 09:56 | US ---
EXAMINATION TYPE: US pelvis complete transvag DATE OF EXAM: 07/26/2024 COMPARISON: US TV(12/12/2015) CLINICAL INDICATION: Female, 43 years old with history of N92.5 OTHER SPECIFIED IRREGULAR MENSTRUATIO N; Prolonged periods TECHNIQUE: Transvaginal (TV) and Transabdominal (TA) . Transabdominal grayscale sonographic images of the pelvis were acquired. Transvaginal sonographic im ages were medically necessary to better assess the following anatomy: Endometrium Doppler imaging: Not performed. FINDINGS: Date of LMP: Pt is unsure of exact dates, she's been experiencing prolonged periods for roughly mult iple months at a time EXAM MEASUREMENTS: Uterus: 8.7x4.7x6.0 cm Endometrial Stripe: 1.2 cm Right Ovary: 2.0x1.1x1.1 cm Left Ovary: 2.6x3.2x4.1 cm 1. Uterus: Anteverted Heterogenous echotexture Filling defect within the cervix with fluid surrounding it image 34 2. Endometrium: wnl 3. Right Ovary: wnl Difficult to visualized TA 4. Left Ovary: Multiple calcifications seen within Lt Ovary ? Septated anechoic area seen: 2.2x2.8x2.3.3cm Spectral, color and waveform doppler imaging shows good arterial and venous flow within the ovaries ; there is no evidence for ovarian torsion. 5. Bilateral Adnexa: wnl 6. Posterior cul-de-sac: wnl IMPRESSION: 1. Filling defect within the cervix unclear etiology consider direct visualization. This appears to be surrounded by fluid. 2. Endometrium within normal limits for thickness. [facility], , 07/26/2024 9:53 AM
== END | disposition home or self-care (01) ==
LOC: RADUSWWP 08:33
PROVIDERS: ATTEND Family Medicine
DX: N92.5 Other specified irregular menstruation (principal)
CPT/HCPCS: 76830; 76856

== ENCOUNTER → 2024-12-18 | Outpatient (CLI) | payer BC ==
[2024-12-18 15:44] LABS: % Iron Saturation 27.25 (12.00-45.00); Iron 100 UG/DL (50-170); Total Iron Binding Capacity 367 UG/DL (228-460)
[2024-12-18 15:51] LABS: Vitamin B12 <150.0 pg/mL (200.0-944.0)
== END | disposition home or self-care (01) ==
LOC: LABWHC1 12:41
PROVIDERS: ATTEND Family Medicine
DX: Z53.9 Procedure and treatment not carried out, unspecified reason (principal)
CPT/HCPCS: 36415; 82607; 82746; 83090; 83540; 83550; 83921

== ENCOUNTER → 2024-12-18 | Outpatient (CLI) | payer BC ==
[2024-12-18 15:06] LABS: Basophils # (A) 0.07 X 10*3/uL (0.00-0.10); Basophils % (A) 0.8 %; Eosinophils % (A) 1.1 %; HCT 38.9 % (37.2-46.3); HGB 12.9 g/dL (12.0-15.0); Lymphocytes # (A) 2.73 X 10*3/uL (0.90-5.00); Lymphocytes % (A) 31.2 %; MCH 34.2 pg (27.0-32.0); MCHC 33.2 g/dL (32.0-37.0); MCV 103.2 FL (80.0-97.0); Mean Platelet Volume 11.3 FL (9.5-12.2); Monocytes # (A) 0.74 X 10*3/uL (0.20-1.00); Monocytes % (A) 8.4 %; NRBC Per 100 WBC 0 X 10*3/uL (0.00-0.01); Neutrophils # (A) 5.08 X 10*3/uL (1.80-7.70); Platelet Count 313 X 10*3/uL (140-440); RBC 3.77 X 10*6/uL (4.10-5.20); RDW 13.3 % (11.5-14.5); WBC 8.76 X 10*3/uL (4.50-10.00)
== END | disposition home or self-care (01) ==
LOC: LABPAT 12:21
PROVIDERS: ATTEND Obstetrics & Gynecology
DX: Z01.812 Encounter for preprocedural laboratory examination (principal); N93.9 Abnormal uterine and vaginal bleeding, unspecified; D75.89 Other specified diseases of blood and blood-forming organs
CPT/HCPCS: 85025

== ENCOUNTER 2024-12-21 08:56 | Day surgery (SDC) | payer BC ==
[2024-12-19 13:44] VITALS: BMI 25.7
[~2024-12-21 08:56] MED LIST changes: -LACTATED RINGERS 1,000 ML IV SCH; -LIDOCAINE 1% 20 ML VIAL (10MG/ML) FOR IV START INTRADERMA PRN; +Pre Op ABX Message 1 EACH MISC MISCELLANE ONE
[2024-12-21] MEDS ORDERED: LIDOCAINE 1% (10MG/ML) FOR IV START INTRADERMA PRN (09:17)
[2024-12-21] MEDS: IV FLUID CONTINUATION 1,000 ML IV ONE ×2 (09:29→12:45)
[2024-12-21] MEDS: LACTATED RINGERS 1,000 ML IV SCH (09:31)
[2024-12-21] MEDS: ONDANSETRON 4 MG/2 ML VIAL IVP ONE (09:35)
[2024-12-21] MEDS: SCOPOLAMINE 1 MG/72 HR PATCH TRANSDERM ONE (09:36)
[2024-12-21] MEDS: DEXAMETHASONE SOD PHOSPHATE 4 MG/ML 1 ML VIAL IV ONE (09:36)
[2024-12-21] MEDS: MIDAZOLAM 2 MG/2 ML VIAL IV ONE (10:27)
[2024-12-21] MEDS ORDERED: KETOROLAC 15 MG/ML 1 ML VIAL ONE (11:16)
[2024-12-21] MEDS ORDERED: fentaNYL (PF) 50 MCG/ML 2 ML AMP ONE (11:16)
[2024-12-21] MEDS ORDERED: PROPOFOL 10 MG/ML 20 ML VIAL IV ONE (11:16)
[2024-12-21] MEDS ORDERED: LIDOCAINE 1% INJ 10MG/ML (20 ML MDV) ONE (11:16)
[2024-12-21] MEDS: SILVER NITRATE APPLICATOR 1 EACH STICK..EA. TOPICAL ONE (11:47)
--- NOTE | 2024-12-21 12:02 | P.OP ---
Date of Procedure: 12/21/24 Preoperative Diagnosis: AUB Postoperative Diagnosis: 1. Abnormal uterine bleeding 2. Endometrial polyps Procedure(s) Performed: Hysteroscopy D&C, Polypectomy, Novasure Ablation Implants: None Anesthesia: JUAREZ Surgeon: Char Serrato Estimated Blood Loss (ml): 15 IV fluids (ml): 200 Urine output (ml): 50 Pathology: other (endometrial curettings) Condition: stable Disposition: same day Indications for Procedure: Ms. Chavez is a 44 year old female with AUB. Endometrial biospy in the office was benign. She presents for management with Hyteroscopy D&C, Novasure endometrial ablation. Risks, benefits, and alternatives discussed with the patient including risk of bleeding, infection, damage to surrounding structures, uterine perforation. The patient understands these risks and desires to proceed with surgery as scheduled. Operative Findings: Two small polyps on posterior uterine wall. uterus sounds to 10 cm. Description of Procedure: Patient is brought to the operating suite and placed in the dorsal lithotomy position. The cervix vagina and perineal body are prepped and draped in the usual sterile fashion. The bladder is drained for approximately 50 mL of clear yellow urine. The weighted speculum was placed into the vagina. Examination under anesthesia reveals a small anteverted mobile smooth uterus, negative adnexa bilaterally. Anterior lip of the cervix was grasped with a double-tooth tenaculum. The uterus sounds to a depth of 10 cm in the anteverted position. The Hanks dilators are used to dilate the cervix to 12 mm. Saline infusion is used to distend the endometrial cavity. The hysteroscope was then introduced and the cavity is noted to have two small posterior polyps which are removed with a sharp curette. The hysteroscope is then removed and the cervix is dilated to 18 mm. The endometrial wand is placed and seated properly. Uterine depth of 6.5 cm is noted, uterine width of 3.7 cm is also noted. The machine is properly calibrated and enabled. For a time of 62 seconds, and a power of 132 W, the procedure is carried out. When completed the wand is collapsed and removed. All sponge needle and instrument counts are correct. She will use [id number] ibuprofen as needed for pain. The patient is given Toradol prior to leaving the operative suite. She will follow up in the office with me in 2 weeks.
[2024-12-21] MEDS: HYDROmorphone 0.5 MG/0.5 ML SYRINGE IVP PRN (12:20)
[2024-12-21 12:22] VITALS: TEMP 97.1
[2024-12-21] MEDS: FAMOTIDINE 20 MG/2 ML VIAL IV STA (13:23)
[2024-12-21] MEDS: CITRIC ACID-SODIUM CITRATE 15 ML CUP PO ONE (13:31)
[2024-12-21 13:47] VITALS: BP 124/92; PULSE 53; RESP 14
== END 2024-12-21 13:52 | disposition home or self-care (01) ==
LOC: OR 08:56
PROVIDERS: ATTEND Obstetrics & Gynecology
DX: N80.00 Endometriosis of the uterus, unspecified (principal); N93.9 Abnormal uterine and vaginal bleeding, unspecified; N84.0 Polyp of corpus uteri
CPT/HCPCS: 81025; 88305; 58563; J2250; J1100; J2405; J2003; J3010; J1885; J2704; J1171; J1308